=== PATIENT | female | born 1940 | race Hispanic/Latino ===

== ENCOUNTER 2017-07-12 09:44 | Day surgery (SDC) | payer MEDICARE ==
[2016-01-16 16:12] VITALS: BMI 30.2
[2017-07-12] MEDS ORDERED: Sodium Chloride 0.9% 1,000 ML IV SCH (10:15)
[2017-07-12] MEDS ORDERED: Etomidate 20 mg/10ml Inj IV ONE (11:19)
[2017-07-12] MEDS ORDERED: Propofol 10 mg/ml Inj (20 ML) ONE (11:56)
[2017-07-12 13:21] VITALS: BP 144/71; PULSE 66; RESP 16; TEMP 97.9; O2SAT 97
== END 2017-07-12 13:53 | disposition home or self-care (01) ==
LOC: ENDO 09:44
PROVIDERS: ATTEND Internal Medicine Gastroenterology
DX: Z12.11 Encounter for screening for malignant neoplasm of colon (principal); Z85.038 Personal history of other malignant neoplasm of large intestine; D12.0 Benign neoplasm of cecum; D12.2 Benign neoplasm of ascending colon; K63.5 Polyp of colon; K64.8 Other hemorrhoids; K57.30 Diverticulosis of large intestine without perforation or abscess without bleeding; E11.9 Type 2 diabetes mellitus without complications; E78.5 Hyperlipidemia, unspecified; Z85.3 Personal history of malignant neoplasm of breast
CPT/HCPCS: 45380; 45381; 45385; 82948; 88305; J2001; J2405; J2704; J3010; J7040 ×2